=== PATIENT | female | born 1960 | race Caucasian/White ===

== ENCOUNTER 2021-01-31 08:40 | Emergency (ER) | payer OTHER ==
--- OUTSIDE RECORDS SUMMARY | 2021-01-31 08:43 | XMS REPORT | Continuity of Care Document ---
:1960 Author Organization [facility] t Address [address] [place] [address] Care Team Providers Name Role Phone ANDREW CASAS Attending Clinician Unavailable LIBIA GARCIA Attending Clinician Unavailable ALEXA MASON Attending Clinician Unavailable LESLEI GAVIN M.D. Attending Clinician Unavailable Problems Condition Condition Condition Status Onset Resolution Last Treating Co mments Source Name Details Category Date Date Treatment Clinician Date Arthralgia Arthralgia Problem Active U nivers of of ity of multiple [facility] sites sites Physici ans Primary Primary Problem Active Univers osteoarthr osteoarthr it y of itis of itis [facility] both knees both knees Ph ysici ans Allergies, Adverse Reactions, Alerts Allergy Allergy Status Severity Reaction(s) Onset Inactive Treating Comm ents Source Name Type Date Date Clinician Lisinopr drug Active Univers il TABS allergy [facility] [place] Physici ans Penicill drug Active Univers ins allergy [facility] [place] [facility] penicill Adverse Active Info Not [facility] Mobic Adverse Active Info Not [facility] Reaction Available [facility] Lisinopr Adverse Active Info Not [facility] Reaction Available [facility] Medications Ordered Filled Start Stop Current Ordering Indication Dosage Frequency Signature Comments Components Source Medication Medication Date Date Medication? Clinician (SIG) Name Name Synvisc One Synvisc One Yes LESLIE inject Univers 48 MG/6ML 48 MG/6ML 2-15 ROMAINE bilateral ity of Intra-artic Intra-artic 00:00: M.D. knees [place] ular ular 00 Physici Solution Solution ans Prefilled Prefilled Syringe Syringe Diclofenac Diclofenac Yes LESLIE APPLY 4GM Univers Sodium 1 % Sodium 1 % - GAVIN TO LOWER ity of Transdermal Transdermal 00:00: M.D. CHERIEITIJonathan [place] Gel Gel 00 S 4X DAILY Physici (DO NOT ans APPLY MORE THAN 16GM TO ANY ONE AFFECTED JOINT) Monovisc 88 Monovisc 88 Yes LESLIE Physician Univers MG/4ML MG/4ML 1-28 GAVIN to inject ity of Intra-artic Intra-artic 00:00: M.D. bilateral [place] ular ular 00 knees Physici Solution Solution ans Prefilled Prefilled Syringe Syringe Bydureon Bydureon Yes Chadd as [facility] directed [facility] Metformin Metformin Yes Chadd (Prior [facility] HCl HCl [facility] Auth: Rx [facility] - Ref#:[id number] Memoria 48) l [facility] Breo Breo Yes Chadd not [facility] Ellipta Ellipta [facility] defined [facility] metFORMIN metFORMIN Yes Unive rs HCl TABS HCl TABS ity of [place] Physici ans Tylenol Ex Tylenol Ex Yes Uni vers [facility] St ity of Arthritis Arthritis [place] Pain TABS Pain TABS Physi ci ans Bydureon Bydureon Yes Univers PEN PEN [facility] of [place] Physici ans Vital Signs Vital Name Observation Time Observation Value Comments Source BP Systolic 2018-03-18 124 mm[Hg] Location: [facility] 08:19:00 Position: [place] Physician s Sitting BP Diastolic 2018-03-18 87 mm[Hg] Location: [facility] 08:19:00 Position: [place] Physician s Sitting Height 2018-03-18 68 [in_us] [facility] 08:19:00 [place] Physician s Weight 2018-03-18 284.25 [lb_av] [facility] 08:19: [place] Physician s Body Mass Index 2018-03-18 43.22 kg/m2 University o f Calculated 08:19: [place] Physician s Temperature 2018-03-18 97.9 [degF] Method: Oral [facility] 08:19:00 [place] Physician s Heart Rate 2018-03-18 70 /min Location: [facility] 08:19:00 Brachial [place] Physician s Artery; Procedures Procedure Date / Time Performing Clinician Source Performed [QH] CYCLIC 2018-03-18 00:00:00 [facility] [place] CITRULLINATED PEPTIDE Physicians (CCP) AB (IGG) [QLH] CBC (INCLUDES 2018-03-18 00:00:00 [facility] DIFF/PLT) Physicians [QLH] CMP W/EGFR 2018-03-18 00:00:00 [facility] Physicians [QL] RHEUMATOID FACTOR 2018-03-18 00:00:00 [facility] Physicians [QL] SJOGRENS 2018-03-18 00:00:00 [facility] ANTIBODIES (SS-A,SS-B) Physician s Encounters Start End Encounter Admission Attending Care Care Encounter Source Date/Time Date/Time Type Type Clinicians Facility Department ID 2020-09-13 2020-09-13 Outpatient [facility] [id number] 2020-07-26 2020-07-26 Outpatient [facility] [id number] [facility] 2020-05-19 2020-05-19 Outpatient AUGUSTO, ANDREW [facility] [id number] [place] 00:00:00 00:00:[address] 2020-05-13 2020-05-13 Outpatient [facility] [id number] [place] 00:00:00 00:00:[address] 2020-04-12 2020-04-12 Outpatient [facility] [id number] [facility] 2020-04-01 2020-04-01 Outpatient [facility] [id number] [facility] 2020-03-10 2020-03-10 Outpatient [facility] [id number] [facility] 2020-03-04 2020-03-04 Outpatient [facility] [id number] [address] [place] [address] 00:00:00 00:00:[address] 2020-01-20 2020-01-20 Outpatient RADHA [facility] [id number] [place] 00:00:00 00:00:00 LIBIA [address] 2020-01-13 2020-01-13 Outpatient RADHA [facility] [id number] [place] 00:00:00 00:00:00 LIBIA [address] 2019-12-24 2019-12-24 Outpatient [facility] [id number] [facility] 2019-12-15 2019-12-15 Outpatient [facility] [id number] [facility] 2019-12-08 2019-12-08 Outpatient MARLON, [facility] [id number] [place] 00:00:00 00:00:00 ALEXA [address] 2019-12-08 2019-12-08 Outpatient MARLON [facility] [id number] [place] 00:00:00 00:00:00 ALEXA [address] 2019-12-01 2019-12-01 Outpatient ANDREW CASAS [facility] [id number] [place] 00:00:00 00:00:[address] 2019-12-01 2019-12-01 Outpatient AUGUSTO ANDREW [facility] [id number] [place] 00:00:00 00:00:[address] 2019-12-01 2019-12-01 Outpatient ANDREW CASAS [facility] [id number] [place] 00:00:00 00:00:[address] 2019-11-03 2019-11-03 [facility] [id number] 10:55:00 10:55:00 [facility] 2019-09-12 2019-09-12 [facility] [id number] 08:30:00 08:30:00 t [facility] 2019-07-28 2019-07-28 [facility] [id number] 08:30:00 08:30:00 t [facility] 2019-06-12 2019-06-12 Outpatient MARLON [facility] [id number] [place] 00:00:00 00:00:00 ALEXA [address] 2019-06-12 2019-06-12 Outpatient MARLON [facility] [id number] [place] 00:00:00 00:00:00 ALEXA [address] 2019-05-22 2019-05-22 [facility] [id number] [address] 08:00:00 08:00:00 t [facility] 2019-05-22 2019-05-22 [facility] [id number] 07:58:00 07:58:00 t [facility] 2019-04-21 2019-04-21 [facility] [id number] 11:16:00 11:16:00 t [facility] 2019-03-20 2019-03-20 [facility] [id number] 08:30:00 08:30:00 t [facility] 2019-03-10 2019-03-10 [facility] [id number] 08:00:00 08:00:00 t [facility] 2019-03-04 2019-03-04 [facility] [id number] 13:30:00 13:30:00 t [facility] 2019-02-26 2019-02-26 [facility] [id number] 11:03:00 11:03:00 t [facility] 2019-02-21 2019-02-21 [facility] [id number] 08:00:00 08:00:00 t [facility] 2019-02-03 2019-02-03 [facility] [id number] 08:30:00 08:30:00 t [facility] Clin[facility] 2018-12-19 2018-12-19 Outpatient KAADRIANYALA, [facility] [id number] [place] 00:00:00 00:00:00 ALEXA 031 [address] i 2018-12-19 2018-12-19 Outpatient ROSAURAA, [facility] [id number] [place] 00:00:00 00:00:00 ALEXA 030 Method i 2018-12-18 2018-12-18 Outpatient KABAA, [facility] [id number] [place] 00:00:00 00:00:00 ALEXA 7[address] 2018-12-18 2018-12-18 Outpatient KAADRIANYALA, [facility] [id number] [place] 00:00:00 00:00:00 ALEXA [address] 2018-10-15 2018-10-15 [facility] [id number] 08:00:00 08:00:00 t [facility] 2018-10-03 2018-10-03 [facility] [id number] 08:00:00 08:00:00 t [facility] 2018-06-06 2018-06-06 [facility] [id number] 08:00:00 08:00:00 t [facility] 2018-05-30 2018-05-30 [facility] [id number] 08:30:00 08:30:00 t [facility] Clin[facility] 2018-03-18 2018-03-18 Appointmen ROMAINE KYARA [place] [id number] 08:00:00 08:00:00 t; LESLIE GAVIN M.D. [facility] Ashlie NELSON [place] [facility] ans 2018-03-14 2018-03-14 [facility] [id number] 08:00:00 08:00:00 t [facility] Clin[facility] 2018-02-22 2018-02-22 [facility] [id number] 08:30:00 08:30:00 t Bone [facility] 2017-10-29 2017-10-29 [facility] [id number] 08:30:00 08:30:00 t Bone [facility] Results Test Description Test Time Test Comments Results Result Comments Source [[facility]] CBC (INCLUDES DIFF/PLT) 2018-03-18 09:13:01 Test Item Value Reference Range Interpretation Comme nts WBC (test code = 6690-2) 8.3 {K/CMM} 3.7-10.4 RBC (test code = 789-8) 4.73 {M/CMM} 4.20-5.40 Hgb (test code = 718-7) 14.3 g/dl 12.0-16.0 Hct (test code = 26225-6) 43.1 % 36.0-48.0 MCV (test code = 787-2) 91.2 fL 80.0-98.0 MCH (test code = 785-6) 30.4 pg 27.0-31.0 MCHC (test code = 786-4) 33.3 g/dl 32.0-36.0 RDW (test code = 788-0) 13.7 % 11.5-14.5 Platelet (test code = 79506-5) 244 {K/CMM} 133-450 Mean Platelet Volume (test code = 07853-8) 9.0 fL 7.4-10.4 [facility]] [id number] 09:13:01 Test Item Value Reference Range Interpretation Comments Segmented Neutrophils (test code 58.7 % 45.0-75.0 = 73134-7) Monocytes (test code = 18342-3) 6.8 % 2.0-12.0 Lymphocytes (test code = 12296-4) 31.5 % 20.0-40.0 Eosinophils (test code = 17200-8) 2.3 % 0.0-4.0 Basophils (test code = 706-2) 0.7 % 0.0-1.0 Segs-Bands # (test code = 4.8 {K/CMM} 1.5-8.1 20946-6) Lymphocytes # (test code = 2.6 {K/CMM} 1.0-5.5 31694-4) Monocytes # (test code = 11576-1) 0.6 {K/CMM} 0.0-0.8 Eosinophils # (test code = 0.2 {K/CMM} 0.0-0.5 20112-9) Basophils # (test code = 72376-9) 0.1 {K/CMM} 0.0-0.2 RBC Morphology (test code = RBC Normal Morphology) Plt Morphology (test code = Plt Normal Morphology) [facility]] CMP [id number] 09:13:01 Test Item Value Reference Range Interpretation Comments Sodium Level 139 {mEq/l} 135-145 (test code = 2951-2) Potassium Level 4.9 {mEq/l} 3.5-5.1 (test code = 2823-3) Chloride Level 104 {mEq/l} 95-109 (test code = 2075-0) Carbon Dioxide; 33 {mEq/l} 24-32 Above High Threshold (test code = 2027-9) AGAP; Below Low 6.9 {mEq/l} 10.0-20.0 Threshold (test code = 52656-2) Glucose Lvl; 149 mg/dl 70-99 Adult reference range Above High values reflect the Threshold (test clinical yamini delinesof the code = 2345-7) [employer]. Creatinine Lvl 0.80 mg/dl 0.50-1.40 (test code = 2160-0) Blood Urea 25 mg/dl 7-22 Nitrogen; Above High Threshold (test code = 3094-0) BUN/Creatinine 31 6-25 Ratio; Above High Threshold (test code = 3097-3) Total Protein 7.0 g/dl 6.4-8.4 (test code = 2885-2) Albumin Lvl (test 3.9 g/dl 3.5-5.0 code = 1751-7) Globulin (test 3.1 g/dl 2.7-4.2 code = 73212-5) A/G Ratio (test 1.3 0.7-1.6 code = 1759-0) Calcium Level 9.7 mg/dl 8.5-10.5 Total (test code = 99694-7) ALT (test code = 45 u/l 0-65 1743-4) AST (test code = 18 u/l 0-37 06952-9) Bili Total (test 0.4 mg/dl 0.2-1.3 code = 1975-2) Alk Phos (test 94 u/l 39-136 code = 1783-0) eGFR (test code = 82 The eGFR i s calculated 11706-1) {ML/MIN/1.7} using the CKD-E PI formula. In mos t young, healthyindividu als the eGFR will be >9 0 mL/min/1.73m2. The eGFR declines with a ge. AneGFR of 60-89 may be normal in some population s, particularly th e elderly, forwhom the CKD -EPI formula has not been extensively thelma idated. Use of the eGFR isnot recommended in the following populations:Ind ividuals with unstable c reatinine concentrations, including patient s and those with seri ous co-morbid conditions.Veronika ents with extremes in mus danita mass or diet.The aicha a above are obtained fr om the National Kidney Disease Education Progr am(NKDEP) which additiona lly recommends that when the eGFR is used in patientswith ex tremes of body mass index for purposes of andra g dosing, the eGFR should be multiplied by t he estimated BMI. [facility]] RHEUMATOID [id number] 09:13:01 Test Item Value Reference Range Interpretation Comments Rheumatoid Factor Quantitative (test <10 0-20 code = 08799-9) [facility]] SJOGRENS ANTIBODIES (SS-A,SS-B)2018-03-18 09:13:01 Test Item Value Reference Range Interpretation Comments SS-A (Ro) Antibody (test code = 5351-2) <0.2 <=0.9 SS-b (La) Antibody (test code = 5353-8) <0.2 <=0.9 [facility][] CYCLIC CITRULLINATED PEPTIDE (CCP) AB (IGG) 2018-03-18 09:13:01 Test Item Value Reference Range Interpretation Comments Cyclic Citrulline Peptide Antibody <0.5 <=2.9 (test code = 75045-8) [facility]
[2021-01-31] MEDS ORDERED: NA CHLORIDE 0.9% 250 ML ONE (10:00)
[2021-01-31] MEDS ORDERED: CASIRIVIMAB/IMDEVIMAB 10 ML VIAL ONE (10:00)
--- NOTE | 2021-01-31 11:36 | EDPHYS ---
Physician Documentation [facility] Name: Dee Redd Age: 60 yrs Sex: Female : 1960 Arrival Date: 01/31/2021 Time: 08:45 Bed 9 Private MD: ED Physician Tr Shields HPI: 01/31 09:49 This 60 yrs old Female presents to ER via Ambulatory with complaints of rn Covid+,IV infusion. 09:49 The patient or guardian reports cough, that is intermittent, with no sputum. Onset: The rn symptoms/episode began/occurred 3 day(s) ago. Severity of symptoms: At their worst the symptoms were mild, in the emergency department the symptoms are unchanged. Modifying factors: The symptoms are alleviated by nothing, the symptoms are aggravated by nothing. Associated signs and symptoms: Pertinent positives: rhinorrhea, Pertinent negatives: chest pain, fever. The patient has not experienced similar symptoms in the past. The patient has not recently seen a physician. Historical: - Allergies: 08:49 Soy; ss 08:49 Lisinopril; ss 08:49 PENICILLINS; ss 08:49 prescription antiinflammatory; ss - PMHx: 08:49 Diabetes mellitus; ss - PSHx: 08:49 colon resection; carpal tunnel repair; Hernia repair; L knee repair; ss - Immunization history:: Client reports receiving the 2nd dose of the Covid vaccine. - Social history:: Smoking status: Patient denies any tobacco usage or history of. - Family history:: not pertinent. - Hospitalizations: : No recent hospitalization is reported. ROS: 09:49 Constitutional: Negative for fever, chills, and weight loss, Eyes: Negative for injury, rn pain, redness, and discharge, ENT: + congestion Cardiovascular: Negative for chest pain, palpitations, and edema, Respiratory: + cough Abdomen/GI: Negative for abdominal pain, nausea, vomiting, diarrhea, and constipation, Back: Negative for injury and pain, : Negative for injury, bleeding, discharge, and swelling, MS/Extremity: Negative for injury and deformity, Skin: Negative for injury, rash, and discoloration, Neuro: Negative for headache, numbness, tingling, and seizure. Exam: 09:49 Constitutional: This is a well developed, well nourished patient who is awake, alert, rn and in no acute distress. Head/Face: Normocephalic, atraumatic. Eyes: Periorbital areas with no swelling, redness, or edema. Neck: Trachea midline, no masses palpated Cardiovascular: Regular rate and rhythm. No pulse deficits. Respiratory: No increased work of breathing, no retractions or nasal flaring. Skin: Warm, dry MS/ Extremity: Pulses equal, no cyanosis. Neuro: Awake and alert, GCS 15 Vital Signs: 08:47 BP 152 / 88; Pulse 80; Resp 16; Temp 97.6(TE); Pulse Ox 99% on R/A; Weight 122.47 kg; ss Height 5 ft. 8 in. (172.72 cm); Pain 0/10; 08:47 Body Mass Index 41.05 (122.47 kg, 172.72 cm) ss MDM: 09:38 Patient medically screened. rn 11:33 Differential Diagnosis: Other COVID. Data reviewed: vital signs, nurses notes, and as a rn result, I will discharge patient. Counseling: I had a detailed discussion with the patient and/or guardian regarding: the historical points, exam findings, and any diagnostic results supporting the discharge/admit diagnosis, the need for outpatient follow up, to return to the emergency department if symptoms worsen or persist or if there are any questions or concerns that arise at home. Special discussion: I discussed with the patient/guardian in detail that at this point there is no indication for admission to the hospital. It is understood, however, that if the symptoms persist or worsen the patient needs to return immediately for re-evaluation. 01/31 09:46 Order name: IV Start; Complete Time: 10:33 rn Administered Medications: 10:33 Drug: Casirivimab-Imdevimab Dose Pack 120 mg/mL-120 mg/mL (EUA) 1 per protocol Route: ss IV; Rate: calculated rate; Site: right antecubital; 11:42 Follow up: IV Status: Completed infusion ss Disposition Summary: 01/31/21 11:35 Discharge Ordered Location: Home rn Problem: new rn Symptoms: are unchanged rn Condition: Stable rn Diagnosis - SARS-associated coronavirus as the cause of diseases classified elsewhere rn Followup: rn - With: Private Physician - When: As needed - Reason: Recheck today's complaints, Re-evaluation by your physician Discharge Instructions: - Discharge Summary Sheet rn - COVID-19 rn - 10 Things You Can Do to Manage Your COVID-19 Symptoms at Home - [facility] rn - Viral Illness, Adult rn - Prevent the Spread of COVID-19 if You Are Sick - [facility] rn Forms: - Medication Reconciliation Form rn - Thank You Letter rn - Antibiotic multimedia journalist - Prescription Opioid Use rn Signatures: Tr Shields MD MD rn Smirch, Shelby, RN RN ss Corrections: (The following items were deleted from the chart) 08:50 08:49 Allergies: No Known Allergies; ss ss
--- NOTE | 2021-01-31 11:36 | ER ---
Nurse's Notes [facility] Name: Dee Redd Age: 60 yrs Sex: Female : 1960 Arrival Date: 01/31/2021 Time: 08:45 Bed 9 Private MD: Diagnosis: SARS-associated coronavirus as the cause of diseases classified elsewhere Presentation: 01/31 08:47 Chief complaint: Patient states: "I have covid. My and I did the home test ss yesterday. He is sicker than me, came in last night to have the infusion and said I should come get it today.". Coronavirus screen: Client denies travel out of the [place] in the last 14 days. Ebola Screen: Patient denies exposure to infectious person. Patient denies travel to an Ebola-affected area in the 21 days before illness onset. Initial Sepsis Screen: Does the patient meet any 2 criteria? No. Patient's initial sepsis screen is negative. Does the patient have a suspected source of infection? No. Patient's initial sepsis screen is negative. Risk Assessment: Do you want to hurt yourself or someone else? Patient reports no desire to harm self or others. Onset of symptoms was January 27, 2021. 08:47 Method Of Arrival: Ambulatory 08:47 Acuity: MANN 4 ss Historical: - Allergies: 08:49 Soy; ss 08:49 Lisinopril; ss 08:49 PENICILLINS; ss 08:49 prescription antiinflammatory; ss - PMHx: 08:49 Diabetes mellitus; ss - PSHx: 08:49 colon resection; carpal tunnel repair; Hernia repair; L knee repair; ss - Immunization history:: Client reports receiving the 2nd dose of the Covid vaccine. - Social history:: Smoking status: Patient denies any tobacco usage or history of. - Family history:: not pertinent. - Hospitalizations: : No recent hospitalization is reported. Screenin:40 Abuse screen: Denies threats or abuse. Denies injuries from another. Nutritional ss screening: No deficits noted. Tuberculosis screening: Never had TB. Fall Risk None identified. Assessment: 10:00 General: Appears in no apparent distress. comfortable, Behavior is calm, cooperative, ss Reports "It just feels like a cold. I don't feel sick." Denies fever, feeling ill, fatigue, chills. Neuro: Level of Consciousness is awake, alert, obeys commands, Oriented to person, place, time, situation. Cardiovascular: Capillary refill < 3 seconds is brisk in bilateral fingers. Respiratory: Breath sounds are clear bilaterally. GI: Patient currently denies abdominal pain, diarrhea, nausea, vomiting. EENT: Nares are clear Oral mucosa is moist. Throat is clear. Derm: Skin is intact, is healthy with good turgor, Skin is dry, Skin is pink, warm \\T\\ dry. normal. 11:45 Reassessment: Infusion complete. Awaiting 1 hour for monitoring. ss 12:40 Reassessment: Patient appears in no apparent distress at this time. Patient and/or ss family updated on plan of care and expected duration. Pain level reassessed. Patient is alert, oriented x 3, equal unlabored respirations, skin warm/dry/pink. Vital Signs: 08:47 BP 152 / 88; Pulse 80; Resp 16; Temp 97.6(TE); Pulse Ox 99% on R/A; Weight 122.47 kg; ss Height 5 ft. 8 in. (172.72 cm); Pain 0/10; 08:47 Body Mass Index 41.05 (122.47 kg, 172.72 cm) ss ED Course: 08:45 Patient arrived in ED. mr 08:49 Triage completed. ss 08:49 Arm band placed on right wrist. ss 08:59 Tr Shields MD is Attending Physician. rn 09:53 Shayy Arellano RN is Primary Nurse. ss 10:30 Inserted saline lock: 20 gauge in right antecubital area, using aseptic technique. ss 12:40 Patient has correct armband on for positive identification. Bed in low position. Call ss light in reach. 12:40 No provider procedures requiring assistance completed. IV discontinued, intact, ss bleeding controlled, No redness/swelling at site. Pressure dressing applied. Administered Medications: 10:33 Drug: Casirivimab-Imdevimab Dose Pack 120 mg/mL-120 mg/mL (EUA) 1 per protocol Route: ss IV; Rate: calculated rate; Site: right antecubital; 11:42 Follow up: IV Status: Completed infusion ss Outcome: 11:35 Discharge ordered by . rn 12:40 Discharged to home ambulatory. ss 12:40 Condition: good 12:40 Discharge instructions given to patient, Instructed on discharge instructions, follow up and referral plans. Demonstrated understanding of instructions, follow-up care. 12:41 Patient left the ED. ss Signatures: Cathy Vasquez Roman, MD MD rn Smirch, Shelby, RN RN ss Corrections: (The following items were deleted from the chart) 08:50 08:49 Allergies: No Known Allergies; ss ss
[2021-01-31 12:58] VITALS: BP 152/88; TEMP 97.6; O2SAT 99
== END 2021-01-31 12:41 | disposition home or self-care (01) ==
LOC: ER 08:40
DX: U07.1 COVID-19 (principal); Z88.0 Allergy status to penicillin; Z88.8 Allergy status to other drugs, medicaments and biological substances; Z91.018 Allergy to other foods
CPT/HCPCS: 96365; 99283; J7050; M0243